=== PATIENT | male | born 1945 | race Caucasian/White ===

== ENCOUNTER 2023-04-26 10:43 | Inpatient (IN) | payer OTHER ==
[2023-04-26 12:17] LABS: HEMATOCRIT 53.7 % (35.4-49); HEMOGLOBIN 18.2 G/dL (11.7-16.9); MCH 31.4 pg (25.7-33.7); MCHC 33.8 g/dl (32.0-35.9); MEAN CELL VOLUME 92.8 fl (80-96); MEAN PLT VOLUME 7.7 fl (7.5-11.1); PLATELET COUNT 201.6 10^3/uL (134-434); RBC 5.79 10^6/uL (4.00-5.60); RDW 14.7 % (11.9-15.9); WHITE BLOOD COUNT 8.9 10^3/uL (4.0-10.8)
[2023-04-26 12:19] LABS: INR 0.9 (0.83-1.09); PROTHROMBIN TIME (PATIENT) 10.5 SEC (9.7-13.0)
[2023-04-26 12:30] LABS: ADD RBC MORPHOLOGY YES
[2023-04-26 12:34] LABS: ALBUMIN 3.7 g/dl (3.4-5.0); BILIRUBIN,TOTAL 1.4 mg/dl (0.2-1); CALCIUM 9.2 mg/dl (8.5-10.1); CREATININE 1.1 mg/dl (0.6-1.3); POTASSIUM 3.1 mmol/L (3.5-5.1)
[2023-04-26 12:54] LABS: PLATELET ESTIMATE ADEQUATE
[2023-04-26] MEDS ORDERED: POTASSIUM CHLORIDE ORAL LIQUID 20 MEQ/15 ML PO ONE (13:11)
[2023-04-26] MEDS ORDERED: SODIUM CHLORIDE 0.9% 1000 ML INFUS.BAG IV ONE (13:12)
[2023-04-26] MEDS ORDERED: POTASSIUM CHLORIDE ORAL LIQUID 20 MEQ/15 ML ONE (13:25)
[2023-04-26] MEDS ORDERED: ONDANSETRON 4 MG/2 ML VIAL IVPUSH ONE (14:18)
[2023-04-26] MEDS ORDERED: ONDANSETRON 4 MG/2 ML VIAL ONE (14:24)
[2023-04-26] MEDS ORDERED: MAGNESIUM SULF 50% (8.12 MEQ/2 ML-1 GM VIAL) IVPB ONE (19:46)
[2023-04-26] MEDS ORDERED: MAGNESIUM SULFATE IN WATER 2 GM/50 ML IVPB IVPB ONE (20:01)
[2023-04-26 21:21] VITALS: BMI 21.2
[2023-04-26] MEDS ORDERED: ACETAMINOPHEN 1000 MG/100 ML BAG IVPB PRN (21:28)
[2023-04-26] MEDS ORDERED: ONDANSETRON 4 MG/2 ML VIAL IVPUSH PRN (21:28)
[2023-04-26] MEDS ORDERED: MINERAL OIL ENEMA 133 ML ENEMA RC ONE (21:33)
[2023-04-26] MEDS: KCL 10 MEQ IVPB 10 MEQ/100 ML INFUS.BAG IVPB SCH ×2 (21:44→23:32)
[2023-04-26] MEDS: SODIUM CHLORIDE 0.9%/KCL 20 MEQ/1,000 ML INFUS.BAG IV SCH (21:54)
[2023-04-27 10:59] LABS: BASO % 0.7 % (0-2.0); EOS % 1.5 % (0-4.5); HEMATOCRIT 41.7 % (35.4-49); LYMPH % 29.3 % (8-40); MCH 30.7 pg (25.7-33.7); MCHC 33.6 g/dl (32.0-35.9); MEAN CELL VOLUME 91.3 fl (80-96); MEAN PLT VOLUME 8.1 fl (7.5-11.1); MONO % 11.1 % (3.8-10.2); NEUT % 57.4 % (42.8-82.8); PLATELET COUNT 200 10^3/uL (134-434); RBC 4.56 M/mm3 (4.00-5.60); RDW 13.9 % (11.9-15.9)
[2023-04-27 11:05] LABS: POTASSIUM 3.5 mmol/L (3.5-5.1)
[2023-04-27 11:06] LABS: BLOOD UREA NITROGEN 15.4 mg/dL (7-18); MAGNESIUM 2.4 mg/dL (1.8-2.4)
[2023-04-27 11:09] LABS: PHOSPHOROUS 2.1 mg/dL (2.5-4.9)
[2023-04-27 11:10] LABS: CALCIUM 7.6 mg/dL (8.5-10.1); CREATININE 0.9 mg/dL (0.55-1.3)
[2023-04-27] MEDS: HEPARIN NA (PORCINE) 5,000 UNITS/ML 1ML VIAL SQ SCH ×3 (15:44→23:18)
[2023-04-27] MEDS ORDERED: ACETAMINOPHEN 325 MG TABLET (FP) PO PRN (21:20)
[2023-04-27] MEDS: SODIUM CHLORIDE 0.9%/KCL 20 MEQ/1,000 ML INFUS.BAG IV SCH (22:00)
[2023-04-28] MEDS: HEPARIN NA (PORCINE) 5,000 UNITS/ML 1ML VIAL SQ SCH ×3 (06:16→22:00)
[2023-04-28] MEDS: SODIUM CHLORIDE 0.9%/KCL 20 MEQ/1,000 ML INFUS.BAG IV SCH ×2 (06:17→22:00)
[2023-04-28 10:27] LABS: POTASSIUM 3.8 mmol/L (3.5-5.1)
[2023-04-28 10:28] LABS: BASO % 0.9 % (0-2.0); HEMATOCRIT 41.5 % (35.4-49); HEMOGLOBIN 13.9 GM/dL (11.7-16.9); MCH 30.6 pg (25.7-33.7); MCHC 33.6 g/dl (32.0-35.9); MEAN CELL VOLUME 91.1 fl (80-96); MONO % 10.9 % (3.8-10.2); NEUT % 59.2 % (42.8-82.8); PLATELET COUNT 182 10^3/uL (134-434); RBC 4.55 M/mm3 (4.00-5.60); RDW 13.9 % (11.9-15.9); WHITE BLOOD COUNT 6.5 K/mm3 (4.0-10.0)
[2023-04-28 10:29] LABS: BLOOD UREA NITROGEN 11.7 mg/dL (7-18)
[2023-04-28 10:32] LABS: CREATININE 0.8 mg/dL (0.55-1.3)
[2023-04-28 10:34] LABS: BILIRUBIN,TOTAL 1.2 mg/dL (0.2-1)
[2023-04-28 10:38] LABS: ALBUMIN 2.6 g/dl (3.4-5.0)
[2023-04-28] MEDS: PANTOPRAZOLE SODIUM 40 MG VIAL IVPUSH SCH (16:22)
[2023-04-29] MEDS: HEPARIN NA (PORCINE) 5,000 UNITS/ML 1ML VIAL SQ SCH ×2 (06:33→15:04)
[2023-04-29 09:38] VITALS: RESP 18
[2023-04-29] MEDS: PANTOPRAZOLE SODIUM 40 MG VIAL IVPUSH SCH (09:42)
[2023-04-29 10:35] LABS: POTASSIUM 4.1 mmol/L (3.5-5.1)
[2023-04-29 10:36] LABS: CALCIUM 8.3 mg/dL (8.5-10.1)
[2023-04-29 10:37] LABS: BASO % 0.4 % (0-2.0); BLOOD UREA NITROGEN 10.3 mg/dL (7-18); EOS % 1.7 % (0-4.5); HEMATOCRIT 45.1 % (35.4-49); LYMPH % 24.6 % (8-40); MCHC 33.1 g/dl (32.0-35.9); MEAN CELL VOLUME 90.7 fl (80-96); MEAN PLT VOLUME 7.6 fl (7.5-11.1); MONO % 11.8 % (3.8-10.2); NEUT % 61.5 % (42.8-82.8); PLATELET COUNT 190 10^3/uL (134-434); RBC 4.98 M/mm3 (4.00-5.60); RDW 13.7 % (11.9-15.9); WHITE BLOOD COUNT 7.2 K/mm3 (4.0-10.0)
[2023-04-29 10:40] LABS: CREATININE 0.9 mg/dL (0.55-1.3)
[2023-04-29] MEDS ORDERED: METOCLOPRAMIDE HCL 10 MG TABLET (FP) PO SCH (11:00)
[2023-04-29 14:45] VITALS: BP 121/73; PULSE 69; TEMP 97.6
== END 2023-04-29 17:44 | disposition home or self-care (01) | DRG 243 ==
LOC: FER 10:43 → FM/S 14:21
PROVIDERS: ADMIT Internal Medicine
DX: K21.9 Gastro-esophageal reflux disease without esophagitis (principal); K59.00 Constipation, unspecified; R63.4 Abnormal weight loss; Z68.21 Body mass index [BMI] 21.0-21.9, adult; I44.7 Left bundle-branch block, unspecified; E86.0 Dehydration; K44.9 Diaphragmatic hernia without obstruction or gangrene; K52.9 Noninfective gastroenteritis and colitis, unspecified
CPT/HCPCS: 0241U-QW; 36415; 71046-TC-FY; 74177-TC; 80048; 80053; 81003; 81015; 83690; 83735; 84100; 84484; 85025; 85610; 85730; 86850; 86900; 86901; 87086; 93005; 99285-25; J1644; Q9967

== ENCOUNTER 2023-05-12 16:57 | Inpatient (IN) | payer OTHER ==
[2023-05-12] MEDS ORDERED: NOREPINEPHRINE BITARTRATE/D5W 8 MG/250 ML BAG IVPB ONE (17:32)
[2023-05-12] MEDS ORDERED: methylPREDNISolone NA SUCC 125 MG/2 ML VIAL IVPB ONE ×2 (17:37→22:00)
[2023-05-12] MEDS ORDERED: ALBUTEROL SO4 2.5/IPRATROPIUM 0.5 INH SOL 3 ML VIAL.NEB. NEB ONE (17:41)
[2023-05-12] MEDS ORDERED: ALBUTEROL SO4 2.5/IPRATROPIUM 0.5 INH SOL 3 ML VIAL.NEB. NEB SCH (17:45)
[2023-05-12] MEDS ORDERED: ROCURONIUM BROMIDE 50 MG/5 ML VIAL IV ONE (17:48)
[2023-05-12] MEDS ORDERED: ETOMIDATE 40 MG/20 ML VIAL IVPUSH ONE (17:48)
[2023-05-12] MEDS ORDERED: PHENYLEPHRINE HCL 10 MG/1 ML SINGLE DOSE VIAL IVPB ONE ×2 (17:49→19:12)
[2023-05-12] MEDS ORDERED: SODIUM CHLORIDE 0.9% 500 ML INFUS.BAG IV ONE ×3 (17:50→18:59)
[2023-05-12 18:04] LABS: ARTERIAL BLD GAS O2 SATURATION 95.3 % (95-98); ARTERIAL BLOOD GAS BASE EXCESS -18.1 mmol/L (-2-2); ARTERIAL BLOOD GAS PO2 112.1 mmHg (80-100)
[2023-05-12 18:04] LABS: VENOUS BASE EXCESS -16.5 mmol/L (-2-2); VENOUS O2 SATURATION 47.2 % (70-80); VENOUS PCO2 68.2 mmHg (38-52)
[2023-05-12 18:05] LABS: VENT MODE A/C; VENT RATE 14
[2023-05-12 18:06] LABS: ARTERIAL BLOOD GAS pH 7.007 (7.350-7.450)
[2023-05-12 18:08] LABS: VENOUS PH 6.999 (7.310-7.410)
[2023-05-12 18:10] LABS: BASO % 0.3 % (0-2.0); EOS % 0.3 % (0-4.5); HEMATOCRIT 53.1 % (35.4-49); LYMPH % 25.9 % (8-40); MCH 30.2 pg (25.7-33.7); MEAN CELL VOLUME 94.3 fl (80-96); MEAN PLT VOLUME 8.1 fl (7.5-11.1); MONO % 1.6 % (3.8-10.2); NEUT % 71.9 % (42.8-82.8); PLATELET COUNT 229 10^3/uL (134-434); RBC 5.64 M/mm3 (4.00-5.60); RDW 15.9 % (11.9-15.9); WHITE BLOOD COUNT 10.4 K/mm3 (4.0-10.0)
[2023-05-12 18:17] LABS: INR 0.98 (0.83-1.09); PROTHROMBIN TIME (PATIENT) 11.4 SEC (9.7-13.0)
[2023-05-12 18:20] LABS: ACTIVATED PTT 23.8 SECONDS (25.2-36.5)
[2023-05-12 18:39] LABS: POTASSIUM 4.4 mmol/L (3.5-5.1)
[2023-05-12 18:42] LABS: ALBUMIN 3.4 g/dl (3.4-5.0); MAGNESIUM 2.9 mg/dL (1.8-2.4)
[2023-05-12 18:47] LABS: BILIRUBIN,TOTAL 1.8 mg/dL (0.2-1); TOT PROT 7.3 g/dl (6.4-8.2)
[2023-05-12 18:52] LABS: BLOOD UREA NITROGEN 57.7 mg/dL (7-18); CALCIUM 9.6 mg/dL (8.5-10.1)
[2023-05-12] MEDS ORDERED: VASOPRESSIN 20 UNITS/ML VIAL IV ONE (18:59)
[2023-05-12] MEDS ORDERED: VASOPRESSIN 40 UNITS/100 ML BAG IV SCH ×2 (19:00→21:45)
[2023-05-12] MEDS ORDERED: PHENYLEPHRINE HCL 10 MG/1 ML SINGLE DOSE VIAL ONE (19:12)
[2023-05-12] MEDS ORDERED: VANCOMYCIN 1,000 MG in DEXTROSE 5%-WATER - 250 ML IVPB ONE (19:13)
[2023-05-12] MEDS ORDERED: PIPERACILLIN/TAZOB 4.5 GM 4.5 GM in DEXTROSE 5%-WATER 100 ML IVPB ONE (19:13)
[2023-05-12] MEDS ORDERED: PHENYLEPHRINE NS PREMIX 50,000 MCG/500 ML BAG CVP SCH (19:15)
[2023-05-12] MEDS: NOREPINEPHRINE BITARTRATE/D5W 8 MG/250 ML BAG IVPB SCH (19:44)
[2023-05-12] MEDS ORDERED: PROPOFOL 1,000,000 MCG/100 ML VIAL IVPB SCH (21:30)
[2023-05-12] MEDS ORDERED: SODIUM BICARBONATE 8.4% 50 MEQ/50 ML DISP.SYRIN IVPUSH ONE ×2 (21:34→22:23)
[2023-05-12] MEDS ORDERED: VANCOMYCIN/WATER FOR INJ (PEG) 1,000 MG/200 ML BAG IVPB ONE (22:00)
[2023-05-12] MEDS ORDERED: AZITHROMYCIN IVPB 500 MG/250 ML BAG IVPB SCH (22:10)
[2023-05-12 22:14] LABS: ARTERIAL BLD GAS O2 SATURATION 99.2 % (95-98)
[2023-05-12 22:15] LABS: ALLENS TEST POSITIVE
[2023-05-12 22:16] LABS: VENT MODE A/C; VENT RATE 14
[2023-05-12 22:18] LABS: ARTERIAL BLOOD GAS pH 7.072 (7.350-7.450)
[2023-05-12] MEDS: FENTANYL NS IVPB 500 MCG/100 ML BAG IVPB SCH (22:23)
[2023-05-12] MEDS: HEPARIN NA (PORCINE) 5,000 UNITS/ML 1ML VIAL SQ SCH (22:37)
[2023-05-12 22:50] LABS: BASO % 0.2 % (0-2.0); EOS % 0.1 % (0-4.5); HEMATOCRIT 45.6 % (35.4-49); HEMOGLOBIN 14.8 GM/dL (11.7-16.9); LYMPH % 11.1 % (8-40); MCH 29.6 pg (25.7-33.7); MCHC 32.4 g/dl (32.0-35.9); MEAN CELL VOLUME 91.2 fl (80-96); MONO % 3.7 % (3.8-10.2); NEUT % 84.9 % (42.8-82.8); PLATELET COUNT 184 10^3/uL (134-434); RDW 14.6 % (11.9-15.9); WHITE BLOOD COUNT 9.6 K/mm3 (4.0-10.0)
[2023-05-12 22:54] LABS: EPI CELLS >36 /uL (0-25.1); HYALINE CASTS 17 /uL (0-3.1); PH,URINE 5.5 (5.0-8.0); URINE APPEARANCE CLOUDY; URINE BILIRUBIN 3+ (NEGATIVE); URINE COLOR DK YELLOW; URINE GLUCOSE (UA) NEGATIVE (NEGATIVE); URINE KETONE 1+ (NEGATIVE); URINE LEUK ESTERASE 1+ (NEGATIVE); URINE NITRITE POSITIVE (NEGATIVE); URINE PROTEIN 2+ (NEGATIVE); URINE WBC 77 /uL (0-25.8)
[2023-05-12 23:09] LABS: CHLORIDE 121 mmol/L (98-107); SODIUM 154 mmol/L (136-145)
[2023-05-12 23:12] LABS: BLOOD UREA NITROGEN 53.4 mg/dL (7-18); CO2 20 mmol/L (21-32); GLUCOSE,RANDOM 198 mg/dL (74-106); MAGNESIUM 2.2 mg/dL (1.8-2.4)
[2023-05-12 23:15] LABS: CREATININE 2.6 mg/dL (0.55-1.3); PHOSPHOROUS 6.2 mg/dL (2.5-4.9); SGOT/AST 52 U/L (15-37); SGPT/ALT 30 U/L (13-61)
[2023-05-12 23:18] LABS: ALK PHOS 81 U/L (45-117)
[2023-05-12] MEDS: DEXTROSE 5%-WATER - 1,000 ML with SODIUM BICARBONATE 8.4% - 150 MEQ IV SCH (23:19)
[2023-05-12] MEDS: CHLORHEXIDINE GLUCONATE 4% CLEANSER FOR DECOLONIZATION TP SCH (23:20)
[2023-05-12 23:21] LABS: ALBUMIN 2.1 g/dl (3.4-5.0); ANION GAP 13 mmol/L (4-13); CALCIUM 6.8 mg/dL (8.5-10.1); LACTIC ACID 6.6 mmol/L (0.4-2.0); POTASSIUM 2.9 mmol/L (3.5-5.1); TOT PROT 4.5 g/dl (6.4-8.2)
[2023-05-12 23:33] LABS: URINE BACTERIA 13.5 /uL (0-1359); URINE RBC 45.9 /uL (0-23.9)
[2023-05-13] MEDS: MUPIROCIN 2% TOPICAL OINTMENT FOR DECOLONIZATION NS SCH ×3 (02:00→22:50)
[2023-05-13] MEDS: FENTANYL NS IVPB 500 MCG/100 ML BAG IVPB SCH ×3 (05:01→22:52)
[2023-05-13] MEDS: HEPARIN NA (PORCINE) 5,000 UNITS/ML 1ML VIAL SQ SCH ×3 (05:38→21:37)
[2023-05-13 06:26] LABS: ARTERIAL BLOOD GAS BASE EXCESS -12.5 mmol/L (-2-2); ARTERIAL BLOOD GAS PO2 200.7 mmHg (80-100); ARTERIAL BLOOD GAS pH 7.141 (7.350-7.450)
[2023-05-13 06:36] LABS: VENT MODE A/C
[2023-05-13 06:37] LABS: VENT RATE 24
[2023-05-13 07:14] LABS: CHLORIDE 113 mmol/L (98-107); POTASSIUM 3.8 mmol/L (3.5-5.1); SODIUM 145 mmol/L (136-145)
[2023-05-13 07:19] LABS: ALBUMIN 2.1 g/dl (3.4-5.0); ANION GAP 16 mmol/L (4-13); BASO % 0.1 % (0-2.0); BLOOD UREA NITROGEN 56.6 mg/dL (7-18); CO2 17 mmol/L (21-32); HEMATOCRIT 45.7 % (35.4-49); HEMOGLOBIN 14.5 GM/dL (11.7-16.9); LYMPH % 8.4 % (8-40); MCH 29.6 pg (25.7-33.7); MCHC 31.7 g/dl (32.0-35.9); MEAN CELL VOLUME 93.3 fl (80-96); MEAN PLT VOLUME 8.4 fl (7.5-11.1); MONO % 3.1 % (3.8-10.2); NEUT % 88.4 % (42.8-82.8); PLATELET COUNT 145 10^3/uL (134-434); RBC 4.89 M/mm3 (4.00-5.60); RDW 15.2 % (11.9-15.9); WHITE BLOOD COUNT 9.3 K/mm3 (4.0-10.0)
[2023-05-13 07:20] LABS: PHOSPHOROUS 4.1 mg/dL (2.5-4.9)
[2023-05-13 07:22] LABS: SGOT/AST 45 U/L (15-37); SGPT/ALT 30 U/L (13-61); TOT PROT 4.6 g/dl (6.4-8.2)
[2023-05-13 07:23] LABS: ALK PHOS 75 U/L (45-117)
[2023-05-13 07:32] LABS: INR 1.01 (0.83-1.09); PROTHROMBIN TIME (PATIENT) 11.7 SEC (9.7-13.0)
[2023-05-13 07:34] LABS: ACTIVATED PTT 26.1 SECONDS (25.2-36.5)
[2023-05-13 07:46] LABS: CALCIUM 6.8 mg/dL (8.5-10.1); GLUCOSE,RANDOM 416 mg/dL (74-106)
[2023-05-13] MEDS ORDERED: FLUDROCORTISONE ACETATE 0.1 MG TABLET (FP) PO SCH ×2 (10:00→10:56)
[2023-05-13] MEDS ORDERED: PIPERACILLIN/TAZOB 3.375 GM 3.375 GM in DEXTROSE 5%-WATER - 50 ML IVPB SCH (10:00)
[2023-05-13] MEDS ORDERED: HYDROCORTISONE SOD SUCCINATE 100 MG/2 ML VIAL IVPB SCH (10:00)
[2023-05-13] MEDS: VASOPRESSIN 40 UNITS/100 ML BAG IV SCH (10:39)
[2023-05-13] MEDS: PIPERACILLIN/TAZOB 2.25 GM 2.25 GM in DEXTROSE 5%-WATER - 50 ML IVPB SCH ×3 (11:12→21:36)
[2023-05-13] MEDS ORDERED: INSULIN (NOVOLOG) ASPART 100 UNITS/ML 10ML VIAL ONE ×2 (11:40→17:43)
[2023-05-13] MEDS: INSULIN SLIDING SCALE (NOVOLOG) 1 VIAL SQ SCH ×3 (11:46→23:15)
[2023-05-13] MEDS: HYDROCORTISONE SOD SUCCINATE 100 MG/2 ML VIAL IVPB SCH ×2 (16:34→21:36)
[2023-05-13] MEDS ORDERED: ALBUTEROL SO4 2.5/IPRATROPIUM 0.5 INH SOL 3 ML VIAL.NEB. NEB ONE (20:28)
[2023-05-13] MEDS ORDERED: PNEUMOC 20-VAL CONJ-DIP CRM/PF 0.5 ML SYRINGE IM ONE (21:00)
[2023-05-13] MEDS: CHLORHEXIDINE GLUCONATE 4% CLEANSER FOR DECOLONIZATION TP SCH (21:37)
[2023-05-13] MEDS: DEXTROSE 5%-WATER - 1,000 ML with SODIUM BICARBONATE 8.4% - 150 MEQ IV SCH (22:52)
[2023-05-14] MEDS: NOREPINEPHRINE BITARTRATE/D5W 8 MG/250 ML BAG IVPB SCH ×2 (01:00→21:52)
[2023-05-14] MEDS: PIPERACILLIN/TAZOB 2.25 GM 2.25 GM in DEXTROSE 5%-WATER - 50 ML IVPB SCH ×4 (02:00→21:53)
[2023-05-14] MEDS: HYDROCORTISONE SOD SUCCINATE 100 MG/2 ML VIAL IVPB SCH ×4 (02:00→21:54)
[2023-05-14] MEDS: VASOPRESSIN 40 UNITS/100 ML BAG IV SCH ×2 (05:00→08:33)
[2023-05-14] MEDS: DEXTROSE 5%-WATER - 1,000 ML with SODIUM BICARBONATE 8.4% - 150 MEQ IV SCH ×2 (05:00→12:11)
[2023-05-14] MEDS: HEPARIN NA (PORCINE) 5,000 UNITS/ML 1ML VIAL SQ SCH (05:42)
[2023-05-14] MEDS: INSULIN SLIDING SCALE (NOVOLOG) 1 VIAL SQ SCH ×3 (05:42→18:05)
[2023-05-14 07:09] LABS: HEMATOCRIT 40.5 % (35.4-49); HEMOGLOBIN 13.2 GM/dL (11.7-16.9); MCH 29.5 pg (25.7-33.7); MCHC 32.6 g/dl (32.0-35.9); MEAN CELL VOLUME 90.5 fl (80-96); MEAN PLT VOLUME 8.8 fl (7.5-11.1); PLATELET COUNT 65 10^3/uL (134-434); RBC 4.47 M/mm3 (4.00-5.60); RDW 14.7 % (11.9-15.9); WHITE BLOOD COUNT 16.5 K/mm3 (4.0-10.0)
[2023-05-14 07:16] LABS: CHLORIDE 102 mmol/L (98-107); SODIUM 141 mmol/L (136-145)
[2023-05-14 07:19] LABS: ALBUMIN 1.7 g/dl (3.4-5.0); ANION GAP 14 mmol/L (4-13); CO2 26 mmol/L (21-32); GLUCOSE,RANDOM 170 mg/dL (74-106); MAGNESIUM 1.5 mg/dL (1.8-2.4)
[2023-05-14 07:22] LABS: CREATININE 2.9 mg/dL (0.55-1.3); PHOSPHOROUS 1.8 mg/dL (2.5-4.9); SGOT/AST 31 U/L (15-37); SGPT/ALT 24 U/L (13-61)
[2023-05-14 07:24] LABS: BILIRUBIN,TOTAL 0.8 mg/dL (0.2-1); TOT PROT 4.2 g/dl (6.4-8.2)
[2023-05-14 07:25] LABS: ALK PHOS 62 U/L (45-117)
[2023-05-14 07:30] LABS: CALCIUM 6.5 mg/dL (8.5-10.1)
[2023-05-14] MEDS ORDERED: MAGNESIUM 2GM/50ML STERILE WATER IVPB IVPB ONE (07:38)
[2023-05-14] MEDS ORDERED: KCL 10 MEQ IVPB 10 MEQ/100 ML INFUS.BAG IVPB SCH (07:45)
[2023-05-14] MEDS ORDERED: KCL 20 MEQ PREMIX BAG 100 ML IVPB ONE (08:30)
[2023-05-14] MEDS ORDERED: POTASSIUM PHOSPHATE 30 MM in DEXTROSE 5%-WATER - 250 ML IVPB ONE (09:00)
[2023-05-14] MEDS: FLUDROCORTISONE ACETATE 0.1 MG TABLET (FP) PO SCH (10:23)
[2023-05-14] MEDS: MUPIROCIN 2% TOPICAL OINTMENT FOR DECOLONIZATION NS SCH ×2 (10:23→21:55)
[2023-05-14 13:06] LABS: ARTERIAL BLD GAS O2 SATURATION 98.8 % (95-98); ARTERIAL BLOOD GAS BASE EXCESS 1.6 mmol/L (-2-2); ARTERIAL BLOOD GAS PO2 129.5 mmHg (80-100); ARTERIAL BLOOD GAS pH 7.477 (7.350-7.450)
[2023-05-14 13:12] LABS: VENT MODE AC; VENT RATE 28
[2023-05-14 15:48] LABS: ARTERIAL BLD GAS O2 SATURATION 97.4 % (95-98); ARTERIAL BLOOD GAS BASE EXCESS 3.5 mmol/L (-2-2); ARTERIAL BLOOD GAS PO2 89.2 mmHg (80-100); ARTERIAL BLOOD GAS pH 7.483 (7.350-7.450)
[2023-05-14 15:56] LABS: VENT MODE A/C
[2023-05-14 15:57] LABS: VENT RATE 24
[2023-05-14 16:31] LABS: CHLORIDE 97 mmol/L (98-107); POTASSIUM 3.4 mmol/L (3.5-5.1); SODIUM 142 mmol/L (136-145)
[2023-05-14 16:35] LABS: ANION GAP 16 mmol/L (4-13); BLOOD UREA NITROGEN 49.5 mg/dL (7-18); CO2 29 mmol/L (21-32); CREATININE 2.7 mg/dL (0.55-1.3); GLUCOSE,RANDOM 196 mg/dL (74-106)
[2023-05-14 16:45] LABS: CALCIUM 6.1 mg/dL (8.5-10.1)
[2023-05-14] MEDS ORDERED: POTASSIUM CHLORIDE ORAL LIQUID 20 MEQ/15 ML PO ONE (18:30)
[2023-05-14] MEDS ORDERED: SODIUM BICARBONATE 8.4% - 150 MEQ in DEXTROSE 5%-WATER - 1,000 ML IV SCH (20:31)
[2023-05-14 21:49] LABS: CHLORIDE 96 mmol/L (98-107); SODIUM 141 mmol/L (136-145)
[2023-05-14 21:51] LABS: BLOOD UREA NITROGEN 46.9 mg/dL (7-18); CO2 33 mmol/L (21-32); GLUCOSE,RANDOM 173 mg/dL (74-106); MAGNESIUM 1.9 mg/dL (1.8-2.4)
[2023-05-14] MEDS: FENTANYL NS IVPB 500 MCG/100 ML BAG IVPB SCH (21:54)
[2023-05-14 21:55] LABS: CREATININE 2.6 mg/dL (0.55-1.3); PHOSPHOROUS 2.8 mg/dL (2.5-4.9)
[2023-05-14] MEDS: CHLORHEXIDINE GLUCONATE 4% CLEANSER FOR DECOLONIZATION TP SCH (21:56)
[2023-05-14 22:07] LABS: ANION GAP 13 mmol/L (4-13); CALCIUM 5.8 mg/dL (8.5-10.1); POTASSIUM 2.8 mmol/L (3.5-5.1)
[2023-05-14 22:43] LABS: ARTERIAL BLD GAS O2 SATURATION 94.2 % (95-98); ARTERIAL BLOOD GAS BASE EXCESS 2.4 mmol/L (-2-2); ARTERIAL BLOOD GAS PO2 73.5 mmHg (80-100); ARTERIAL BLOOD GAS pH 7.366 (7.350-7.450)
[2023-05-14 22:48] LABS: VENT MODE A/C; VENT RATE 20
[2023-05-14] MEDS: KCL 20 MEQ PREMIX BAG 100 ML IVPB SCH ×2 (22:52→23:56)
[2023-05-14] MEDS ORDERED: ALBUTEROL SO4 2.5/IPRATROPIUM 0.5 INH SOL 3 ML VIAL.NEB. NEB PRN (22:56)
[2023-05-15 00:25] LABS: ARTERIAL BLD GAS O2 SATURATION 93.2 % (95-98); ARTERIAL BLOOD GAS BASE EXCESS 4.3 mmol/L (-2-2); ARTERIAL BLOOD GAS pH 7.418 (7.350-7.450)
[2023-05-15 00:28] LABS: VENT MODE A/C; VENT RATE 22
[2023-05-15] MEDS: INSULIN SLIDING SCALE (NOVOLOG) 1 VIAL SQ SCH ×5 (00:46→23:34)
[2023-05-15] MEDS ORDERED: FUROSEMIDE 40 MG/4 ML INJECTABLE VIAL IVPUSH ONE (00:46)
[2023-05-15] MEDS: KCL 20 MEQ PREMIX BAG 100 ML IVPB SCH (01:05)
[2023-05-15] MEDS: PIPERACILLIN/TAZOB 2.25 GM 2.25 GM in DEXTROSE 5%-WATER - 50 ML IVPB SCH ×4 (02:27→21:09)
[2023-05-15] MEDS: HYDROCORTISONE SOD SUCCINATE 100 MG/2 ML VIAL IVPB SCH ×4 (02:27→21:09)
[2023-05-15 06:20] LABS: HEMATOCRIT 38.9 % (35.4-49); HEMOGLOBIN 12.9 GM/dL (11.7-16.9); MCH 29.7 pg (25.7-33.7); MCHC 33.2 g/dl (32.0-35.9); MEAN CELL VOLUME 89.5 fl (80-96); MEAN PLT VOLUME 8.6 fl (7.5-11.1); PLATELET COUNT 37 10^3/uL (134-434); RBC 4.34 M/mm3 (4.00-5.60); RDW 14.5 % (11.9-15.9); WHITE BLOOD COUNT 9.9 K/mm3 (4.0-10.0)
[2023-05-15 06:26] LABS: EPI CELLS 4 /uL (0-25.1); HYALINE CASTS 1 /uL (0-3.1); PH,URINE 5.5 (5.0-8.0); URINE APPEARANCE CLEAR; URINE BACTERIA 19 /uL (0-1359); URINE BILIRUBIN 1+ (NEGATIVE); URINE COLOR DK YELLOW; URINE GLUCOSE (UA) NEGATIVE (NEGATIVE); URINE KETONE NEGATIVE (NEGATIVE); URINE LEUK ESTERASE NEGATIVE (NEGATIVE); URINE NITRITE NEGATIVE (NEGATIVE); URINE PROTEIN 1+ (NEGATIVE); URINE RBC 64 /uL (0-23.9); URINE WBC 20 /uL (0-25.8)
[2023-05-15 06:42] LABS: CHLORIDE 90 mmol/L (98-107); POTASSIUM 3.4 mmol/L (3.5-5.1); SODIUM 138 mmol/L (136-145)
[2023-05-15 06:46] LABS: ALBUMIN 1.6 g/dl (3.4-5.0); ANION GAP 13 mmol/L (4-13); BLOOD UREA NITROGEN 44.5 mg/dL (7-18); CO2 34 mmol/L (21-32); GLUCOSE,RANDOM 171 mg/dL (74-106); MAGNESIUM 1.8 mg/dL (1.8-2.4)
[2023-05-15 06:49] LABS: CREATININE 2.5 mg/dL (0.55-1.3); PHOSPHOROUS 2.5 mg/dL (2.5-4.9); SGOT/AST 40 U/L (15-37); SGPT/ALT 24 U/L (13-61)
[2023-05-15 06:50] LABS: TOT PROT 4.2 g/dl (6.4-8.2)
[2023-05-15 06:52] LABS: ALK PHOS 69 U/L (45-117)
[2023-05-15 07:15] LABS: CALCIUM 5.8 mg/dL (8.5-10.1)
[2023-05-15] MEDS ORDERED: CALCIUM GLUCONATE 10% - 1,000 MG/10 ML VIAL IVPB ONE (08:30)
[2023-05-15] MEDS ORDERED: KCL 20 MEQ PREMIX BAG 100 ML IVPB ONE (09:00)
[2023-05-15] MEDS ORDERED: POTASSIUM PHOSPHATE 30 MM in SODIUM CHLORIDE 250 ML IVPB ONE (09:00)
[2023-05-15] MEDS: FLUDROCORTISONE ACETATE 0.1 MG TABLET (FP) PO SCH (09:30)
[2023-05-15] MEDS: MUPIROCIN 2% TOPICAL OINTMENT FOR DECOLONIZATION NS SCH ×2 (09:30→21:09)
[2023-05-15 10:06] LABS: ARTERIAL BLD GAS O2 SATURATION 96.7 % (95-98); ARTERIAL BLOOD GAS BASE EXCESS 9.6 mmol/L (-2-2); ARTERIAL BLOOD GAS PO2 78.7 mmHg (80-100); ARTERIAL BLOOD GAS pH 7.523 (7.350-7.450)
[2023-05-15 10:09] LABS: VENT MODE A/C; VENT RATE 22
[2023-05-15 13:50] LABS: ACTIVATED PTT 29.8 SECONDS (25.2-36.5); INR 0.97 (0.83-1.09); PROTHROMBIN TIME (PATIENT) 11.2 SEC (9.7-13.0)
[2023-05-15] MEDS: FENTANYL NS IVPB 500 MCG/100 ML BAG IVPB SCH ×2 (14:22→23:35)
[2023-05-15] MEDS: NOREPINEPHRINE BITARTRATE/D5W 8 MG/250 ML BAG IVPB SCH (17:29)
[2023-05-15] MEDS: VASOPRESSIN 40 UNITS/100 ML BAG IV SCH (21:10)
[2023-05-15] MEDS: CHLORHEXIDINE GLUCONATE 4% CLEANSER FOR DECOLONIZATION TP SCH (21:10)
[2023-05-15 22:23] LABS: ARTERIAL BLD GAS O2 SATURATION 96.8 % (95-98); ARTERIAL BLOOD GAS BASE EXCESS 8.5 mmol/L (-2-2); ARTERIAL BLOOD GAS PO2 87.2 mmHg (80-100); ARTERIAL BLOOD GAS pH 7.444 (7.350-7.450)
[2023-05-15 22:25] LABS: VENT MODE VAC; VENT RATE 14
[2023-05-15] MEDS ORDERED: KCL 10 MEQ IVPB 10 MEQ/100 ML INFUS.BAG IVPB SCH (22:30)
[2023-05-16] MEDS: PIPERACILLIN/TAZOB 2.25 GM 2.25 GM in DEXTROSE 5%-WATER - 50 ML IVPB SCH ×3 (02:20→14:04)
[2023-05-16] MEDS: HYDROCORTISONE SOD SUCCINATE 100 MG/2 ML VIAL IVPB SCH ×4 (02:20→21:31)
[2023-05-16] MEDS: INSULIN SLIDING SCALE (NOVOLOG) 1 VIAL SQ SCH ×4 (06:01→23:19)
[2023-05-16 06:52] LABS: ARTERIAL BLD GAS O2 SATURATION 91.9 % (95-98); ARTERIAL BLOOD GAS BASE EXCESS 6.9 mmol/L (-2-2); ARTERIAL BLOOD GAS PO2 58.5 mmHg (80-100); ARTERIAL BLOOD GAS pH 7.477 (7.350-7.450)
[2023-05-16 06:52] LABS: HEMATOCRIT 34.5 % (35.4-49); HEMOGLOBIN 11.4 GM/dL (11.7-16.9); MCH 29.8 pg (25.7-33.7); MEAN CELL VOLUME 90.3 fl (80-96); MEAN PLT VOLUME 9.5 fl (7.5-11.1); RBC 3.82 M/mm3 (4.00-5.60); RDW 14.6 % (11.9-15.9); WHITE BLOOD COUNT 8.9 K/mm3 (4.0-10.0)
[2023-05-16 06:56] LABS: VENT MODE A/C; VENT RATE 16
[2023-05-16 06:59] LABS: PLATELET COUNT 25 10^3/uL (134-434)
[2023-05-16 07:14] LABS: CHLORIDE 91 mmol/L (98-107); POTASSIUM 3.5 mmol/L (3.5-5.1); SODIUM 138 mmol/L (136-145)
[2023-05-16 07:17] LABS: ALBUMIN 1.4 g/dl (3.4-5.0); ANION GAP 12 mmol/L (4-13); BLOOD UREA NITROGEN 51.7 mg/dL (7-18); CO2 35 mmol/L (21-32); GLUCOSE,RANDOM 117 mg/dL (74-106); MAGNESIUM 1.8 mg/dL (1.8-2.4)
[2023-05-16 07:19] LABS: CREATININE 2.4 mg/dL (0.55-1.3)
[2023-05-16 07:20] LABS: PHOSPHOROUS 3.9 mg/dL (2.5-4.9); SGOT/AST 57 U/L (15-37); SGPT/ALT 25 U/L (13-61)
[2023-05-16 07:21] LABS: BILIRUBIN,TOTAL 0.8 mg/dL (0.2-1); TOT PROT 3.9 g/dl (6.4-8.2)
[2023-05-16 07:22] LABS: ALK PHOS 73 U/L (45-117)
[2023-05-16 07:23] LABS: CALCIUM 5.6 mg/dL (8.5-10.1)
[2023-05-16] MEDS ORDERED: CALCIUM GLUCONATE 10% - 1,000 MG/10 ML VIAL IVPB ONE (08:27)
[2023-05-16] MEDS: FLUDROCORTISONE ACETATE 0.1 MG TABLET (FP) PO SCH (09:00)
[2023-05-16] MEDS: MUPIROCIN 2% TOPICAL OINTMENT FOR DECOLONIZATION NS SCH ×2 (09:00→21:32)
[2023-05-16] MEDS: PANTOPRAZOLE SODIUM 40 MG VIAL IVPUSH SCH (09:00)
[2023-05-16] MEDS: ALBUMIN HUMAN 25% 12.5 GM/50 ML VIAL IV SCH ×4 (10:36→12:06)
[2023-05-16] MEDS: CEFEPIME 1 GM in DEXTROSE 5%-WATER 100 ML IVPB SCH ×2 (14:51→21:31)
[2023-05-16] MEDS ORDERED: CALCIUM GLUCONATE IN NACL 1 GM/50 ML BAG IVPB ONE (17:51)
[2023-05-16] MEDS: CHLORHEXIDINE GLUCONATE 4% CLEANSER FOR DECOLONIZATION TP SCH (21:31)
[2023-05-16] MEDS: FENTANYL NS IVPB 500 MCG/100 ML BAG IVPB SCH (21:31)
[2023-05-16] MEDS: NOREPINEPHRINE BITARTRATE/D5W 8 MG/250 ML BAG IVPB SCH (21:31)
[2023-05-17] MEDS: HYDROCORTISONE SOD SUCCINATE 100 MG/2 ML VIAL IVPB SCH ×4 (02:21→21:26)
[2023-05-17] MEDS: INSULIN SLIDING SCALE (NOVOLOG) 1 VIAL SQ SCH ×3 (05:40→17:04)
[2023-05-17 08:02] LABS: HEMATOCRIT 35.2 % (35.4-49); HEMOGLOBIN 11.5 GM/dL (11.7-16.9); MCH 29.7 pg (25.7-33.7); MCHC 32.7 g/dl (32.0-35.9); MEAN CELL VOLUME 90.7 fl (80-96); MEAN PLT VOLUME 8.6 fl (7.5-11.1); RBC 3.88 M/mm3 (4.00-5.60); RDW 14.8 % (11.9-15.9)
[2023-05-17 08:24] LABS: WHITE BLOOD COUNT 1.6 K/mm3 (4.0-10.0)
[2023-05-17 08:25] LABS: PLATELET COUNT 10 10^3/uL (134-434)
[2023-05-17 08:31] LABS: CHLORIDE 94 mmol/L (98-107); SODIUM 140 mmol/L (136-145)
[2023-05-17 08:36] LABS: BLOOD UREA NITROGEN 47.3 mg/dL (7-18); CO2 35 mmol/L (21-32); GLUCOSE,RANDOM 104 mg/dL (74-106); MAGNESIUM 1.9 mg/dL (1.8-2.4)
[2023-05-17 08:39] LABS: CREATININE 2.1 mg/dL (0.55-1.3); PHOSPHOROUS 3.7 mg/dL (2.5-4.9); SGOT/AST 74 U/L (15-37); SGPT/ALT 26 U/L (13-61)
[2023-05-17 08:40] LABS: BILIRUBIN,TOTAL 1.2 mg/dL (0.2-1); TOT PROT 4.3 g/dl (6.4-8.2)
[2023-05-17 08:42] LABS: ALK PHOS 60 U/L (45-117); ANION GAP 12 mmol/L (4-13); CALCIUM 6.1 mg/dL (8.5-10.1); POTASSIUM 2.7 mmol/L (3.5-5.1)
[2023-05-17] MEDS: PANTOPRAZOLE SODIUM 40 MG VIAL IVPUSH SCH (09:11)
[2023-05-17] MEDS: MUPIROCIN 2% TOPICAL OINTMENT FOR DECOLONIZATION NS SCH (09:11)
[2023-05-17] MEDS: CEFEPIME 1 GM in DEXTROSE 5%-WATER 100 ML IVPB SCH ×2 (09:12→21:27)
[2023-05-17] MEDS ORDERED: ALBUMIN HUMAN 25% 100 ML VIAL IV SCH (09:15)
[2023-05-17] MEDS ORDERED: POTASSIUM CHLORIDE ORAL LIQUID 20 MEQ/15 ML PO ONE (09:45)
[2023-05-17] MEDS ORDERED: CALCIUM GLUCONATE 10% - 1,000 MG/10 ML VIAL IVPB ONE (10:30)
[2023-05-17] MEDS: KCL 10 MEQ IVPB 10 MEQ/100 ML INFUS.BAG IVPB SCH ×3 (10:45→12:37)
[2023-05-17] MEDS ORDERED: VANCOMYCIN PREMIX 1.5 GM 1,500 MG/300 ML BAG IVPB ONE (11:00)
[2023-05-17] MEDS: FLUDROCORTISONE ACETATE 0.1 MG TABLET (FP) PO SCH (11:18)
[2023-05-17 11:35] LABS: ARTERIAL BLOOD GAS BASE EXCESS 1.3 mmol/L (-2-2); ARTERIAL BLOOD GAS PO2 103.3 mmHg (80-100); ARTERIAL BLOOD GAS pH 7.296 (7.350-7.450)
[2023-05-17 11:43] LABS: VENT MODE AC; VENT RATE 16
[2023-05-17] MEDS ORDERED: ALBUMIN HUMAN 25% 100 ML VIAL IV ONE (13:00)
[2023-05-17] MEDS ORDERED: ALBUMIN HUMAN 25% 12.5 GM/50 ML VIAL IV ONE (13:00)
[2023-05-17 13:41] VITALS: BMI 22.9
[2023-05-17 18:36] LABS: CHLORIDE 95 mmol/L (98-107); POTASSIUM 3.6 mmol/L (3.5-5.1); SODIUM 138 mmol/L (136-145)
[2023-05-17 18:38] LABS: ANION GAP 10 mmol/L (4-13); BLOOD UREA NITROGEN 51.6 mg/dL (7-18); CO2 34 mmol/L (21-32); GLUCOSE,RANDOM 98 mg/dL (74-106)
[2023-05-17 18:41] LABS: CREATININE 2.2 mg/dL (0.55-1.3)
[2023-05-17 18:45] LABS: CALCIUM 6.3 mg/dL (8.5-10.1)
[2023-05-17 20:22] LABS: BASO % 0.2 % (0-2.0); EOS % 0.3 % (0-4.5); HEMATOCRIT 29.9 % (35.4-49); HEMOGLOBIN 9.9 GM/dL (11.7-16.9); LYMPH % 20.9 % (8-40); MCH 29.7 pg (25.7-33.7); MCHC 32.9 g/dl (32.0-35.9); MEAN CELL VOLUME 90.1 fl (80-96); MEAN PLT VOLUME 8.4 fl (7.5-11.1); MONO % 2.1 % (3.8-10.2); NEUT % 76.5 % (42.8-82.8); PLATELET COUNT 92 10^3/uL (134-434); RBC 3.32 M/mm3 (4.00-5.60); RDW 15.1 % (11.9-15.9)
[2023-05-17] MEDS: NOREPINEPHRINE BITARTRATE/D5W 8 MG/250 ML BAG IVPB SCH (21:26)
[2023-05-17] MEDS: CHLORHEXIDINE GLUCONATE 4% CLEANSER FOR DECOLONIZATION TP SCH (21:27)
[2023-05-17 21:36] LABS: ANISOCYTOSIS 2+; MACROCYTOSIS 0; OVALOCYTE 1+
[2023-05-18] MEDS: INSULIN SLIDING SCALE (NOVOLOG) 1 VIAL SQ SCH ×4 (00:08→19:19)
[2023-05-18] MEDS: HYDROCORTISONE SOD SUCCINATE 100 MG/2 ML VIAL IVPB SCH ×4 (02:08→21:29)
[2023-05-18] MEDS: VASOPRESSIN 40 UNITS/100 ML BAG IV SCH ×2 (07:00)
[2023-05-18 08:21] LABS: HEMATOCRIT 29.6 % (35.4-49); HEMOGLOBIN 9.6 GM/dL (11.7-16.9); MCH 29.4 pg (25.7-33.7); MCHC 32.3 g/dl (32.0-35.9); MEAN CELL VOLUME 90.9 fl (80-96); MEAN PLT VOLUME 9.3 fl (7.5-11.1); PLATELET COUNT 50 10^3/uL (134-434); RBC 3.25 M/mm3 (4.00-5.60); RDW 15.1 % (11.9-15.9)
[2023-05-18 08:40] LABS: CHLORIDE 96 mmol/L (98-107); POTASSIUM 3.6 mmol/L (3.5-5.1); SODIUM 142 mmol/L (136-145)
[2023-05-18 08:43] LABS: ALBUMIN 2.1 g/dl (3.4-5.0); ANION GAP 12 mmol/L (4-13); BLOOD UREA NITROGEN 55.3 mg/dL (7-18); CO2 33 mmol/L (21-32); GLUCOSE,RANDOM 102 mg/dL (74-106); MAGNESIUM 2.1 mg/dL (1.8-2.4)
[2023-05-18 08:45] LABS: CREATININE 2.4 mg/dL (0.55-1.3)
[2023-05-18 08:46] LABS: PHOSPHOROUS 4.5 mg/dL (2.5-4.9); SGOT/AST 92 U/L (15-37); SGPT/ALT 47 U/L (13-61)
[2023-05-18 08:47] LABS: TOT PROT 4.6 g/dl (6.4-8.2)
[2023-05-18 08:48] LABS: ALK PHOS 80 U/L (45-117)
[2023-05-18 08:50] LABS: CALCIUM 6.1 mg/dL (8.5-10.1)
[2023-05-18] MEDS: CEFEPIME 1 GM in DEXTROSE 5%-WATER 100 ML IVPB SCH ×2 (09:21→21:31)
[2023-05-18] MEDS: PANTOPRAZOLE SODIUM 40 MG VIAL IVPUSH SCH (09:22)
[2023-05-18] MEDS: FLUDROCORTISONE ACETATE 0.1 MG TABLET (FP) PO SCH (09:22)
[2023-05-18] MEDS ORDERED: CALCIUM GLUCONATE 10% - 1,000 MG/10 ML VIAL IVPB ONE (10:00)
[2023-05-18 10:50] LABS: ANISOCYTOSIS 1+; MACROCYTOSIS 0; TOXIC GRANULATION 1+
[2023-05-18] MEDS ORDERED: NOREPINEPHRINE BITARTRATE 4 MG/4 ML ML IV ONE (18:27)
[2023-05-18] MEDS: NOREPINEPHRINE BITARTRATE/D5W 8 MG/250 ML BAG IVPB SCH (18:45)
[2023-05-18] MEDS: FENTANYL NS IVPB 500 MCG/100 ML BAG IVPB SCH (21:30)
[2023-05-18] MEDS: CHLORHEXIDINE GLUCONATE 4% CLEANSER FOR DECOLONIZATION TP SCH (21:31)
[2023-05-19] MEDS: INSULIN SLIDING SCALE (NOVOLOG) 1 VIAL SQ SCH ×5 (00:36→23:49)
[2023-05-19] MEDS: HYDROCORTISONE SOD SUCCINATE 100 MG/2 ML VIAL IVPB SCH ×4 (02:00→21:13)
[2023-05-19 08:16] LABS: HEMATOCRIT 29.5 % (35.4-49); HEMOGLOBIN 9.7 GM/dL (11.7-16.9); MCH 30.2 pg (25.7-33.7); MCHC 32.9 g/dl (32.0-35.9); MEAN CELL VOLUME 91.8 fl (80-96); MEAN PLT VOLUME 9.1 fl (7.5-11.1); RBC 3.22 M/mm3 (4.00-5.60); RDW 14.9 % (11.9-15.9)
[2023-05-19 08:18] LABS: CHLORIDE 102 mmol/L (98-107); POTASSIUM 3.4 mmol/L (3.5-5.1); SODIUM 143 mmol/L (136-145)
[2023-05-19 08:23] LABS: ANION GAP 13 mmol/L (4-13); CO2 28 mmol/L (21-32); GLUCOSE,RANDOM 111 mg/dL (74-106); MAGNESIUM 1.9 mg/dL (1.8-2.4)
[2023-05-19 08:24] LABS: BLOOD UREA NITROGEN 73.5 mg/dL (7-18)
[2023-05-19 08:26] LABS: CREATININE 2.8 mg/dL (0.55-1.3); PHOSPHOROUS 3.5 mg/dL (2.5-4.9); SGOT/AST 60 U/L (15-37); SGPT/ALT 42 U/L (13-61)
[2023-05-19 08:28] LABS: TOT PROT 3.8 g/dl (6.4-8.2)
[2023-05-19 08:29] LABS: ALK PHOS 76 U/L (45-117)
[2023-05-19 08:38] LABS: WHITE BLOOD COUNT 1.3 K/mm3 (4.0-10.0)
[2023-05-19 08:39] LABS: ALBUMIN 1.6 g/dl (3.4-5.0); PLATELET COUNT 16 10^3/uL (134-434)
[2023-05-19 09:45] LABS: ANISOCYTOSIS 2+; MACROCYTOSIS 1+; PLATELET ESTIMATE DECREASED
[2023-05-19] MEDS: PANTOPRAZOLE SODIUM 40 MG VIAL IVPUSH SCH (09:47)
[2023-05-19] MEDS: CEFEPIME 1 GM in DEXTROSE 5%-WATER 100 ML IVPB SCH ×2 (09:50→21:13)
[2023-05-19] MEDS: FLUDROCORTISONE ACETATE 0.1 MG TABLET (FP) PO SCH (09:52)
[2023-05-19] MEDS: NOREPINEPHRINE BITARTRATE/D5W 8 MG/250 ML BAG IVPB SCH ×2 (09:56→21:13)
[2023-05-19] MEDS: FENTANYL NS IVPB 500 MCG/100 ML BAG IVPB SCH (10:22)
[2023-05-19] MEDS ORDERED: POTASSIUM CHLORIDE ORAL LIQUID 20 MEQ/15 ML PO ONE (16:05)
[2023-05-19] MEDS: CHLORHEXIDINE GLUCONATE 4% CLEANSER FOR DECOLONIZATION TP SCH (21:14)
[2023-05-19] MEDS: VASOPRESSIN 40 UNITS/100 ML BAG IV SCH (21:54)
[2023-05-20] MEDS: HYDROCORTISONE SOD SUCCINATE 100 MG/2 ML VIAL IVPB SCH ×4 (02:37→21:33)
[2023-05-20] MEDS: INSULIN SLIDING SCALE (NOVOLOG) 1 VIAL SQ SCH ×4 (05:18→23:17)
[2023-05-20 08:14] LABS: HEMATOCRIT 29.1 % (35.4-49); HEMOGLOBIN 9.5 GM/dL (11.7-16.9); MCH 30.1 pg (25.7-33.7); MCHC 32.8 g/dl (32.0-35.9); MEAN CELL VOLUME 91.7 fl (80-96); MEAN PLT VOLUME 8.2 fl (7.5-11.1); RBC 3.17 M/mm3 (4.00-5.60); RDW 15.2 % (11.9-15.9)
[2023-05-20 08:23] LABS: PLATELET COUNT 28 10^3/uL (134-434); WHITE BLOOD COUNT 0.4 K/mm3 (4.0-10.0)
[2023-05-20 08:35] LABS: CHLORIDE 99 mmol/L (98-107); POTASSIUM 4.3 mmol/L (3.5-5.1); SODIUM 142 mmol/L (136-145)
[2023-05-20 08:37] LABS: ANION GAP 14 mmol/L (4-13); BLOOD UREA NITROGEN 96.2 mg/dL (7-18); CO2 30 mmol/L (21-32); GLUCOSE,RANDOM 180 mg/dL (74-106); MAGNESIUM 2.1 mg/dL (1.8-2.4)
[2023-05-20 08:39] LABS: ALBUMIN 1.8 g/dl (3.4-5.0)
[2023-05-20 08:40] LABS: PHOSPHOROUS 4.4 mg/dL (2.5-4.9)
[2023-05-20 08:41] LABS: BILIRUBIN,DIRECT 0.5 mg/dL (0.0-0.2); CREATININE 3.9 mg/dL (0.55-1.3)
[2023-05-20 08:43] LABS: TOT PROT 4.4 g/dl (6.4-8.2)
[2023-05-20 08:44] LABS: BILIRUBIN,TOTAL 1.1 mg/dL (0.2-1)
[2023-05-20] MEDS: CEFEPIME 1 GM in DEXTROSE 5%-WATER 100 ML IVPB SCH ×2 (09:25→21:33)
[2023-05-20] MEDS: PANTOPRAZOLE SODIUM 40 MG VIAL IVPUSH SCH (09:26)
[2023-05-20] MEDS: FLUDROCORTISONE ACETATE 0.1 MG TABLET (FP) PO SCH (09:27)
[2023-05-20] MEDS: VASOPRESSIN 40 UNITS/100 ML BAG IV SCH ×2 (09:57→18:45)
[2023-05-20] MEDS ORDERED: CALCIUM GLUCONATE IN NACL, 1,000 MG/100 ML BAG IVPB ONE (10:00)
[2023-05-20] MEDS: NOREPINEPHRINE BITARTRATE/D5W 8 MG/250 ML BAG IVPB SCH ×2 (13:35→18:45)
[2023-05-20] MEDS ORDERED: VASOPRESSIN 20 UNITS/ML VIAL IV ONE (18:40)
[2023-05-20] MEDS: CHLORHEXIDINE GLUCONATE 4% CLEANSER FOR DECOLONIZATION TP SCH (21:33)
[2023-05-21] MEDS: HYDROCORTISONE SOD SUCCINATE 100 MG/2 ML VIAL IVPB SCH ×4 (02:04→22:10)
[2023-05-21] MEDS: INSULIN SLIDING SCALE (NOVOLOG) 1 VIAL SQ SCH ×3 (06:06→17:41)
[2023-05-21 06:59] LABS: HEMATOCRIT 26.3 % (35.4-49); HEMOGLOBIN 8.8 GM/dL (11.7-16.9); MCH 30.4 pg (25.7-33.7); MCHC 33.3 g/dl (32.0-35.9); MEAN CELL VOLUME 91.3 fl (80-96); MEAN PLT VOLUME 7.6 fl (7.5-11.1); RBC 2.88 M/mm3 (4.00-5.60); RDW 14.9 % (11.9-15.9)
[2023-05-21 07:12] LABS: WHITE BLOOD COUNT 0.2 K/mm3 (4.0-10.0)
[2023-05-21 07:18] LABS: CHLORIDE 98 mmol/L (98-107); POTASSIUM 3.6 mmol/L (3.5-5.1); SODIUM 140 mmol/L (136-145)
[2023-05-21 07:21] LABS: ALBUMIN 1.5 g/dl (3.4-5.0); ANION GAP 10 mmol/L (4-13); CO2 32 mmol/L (21-32); GLUCOSE,RANDOM 159 mg/dL (74-106); MAGNESIUM 2.1 mg/dL (1.8-2.4)
[2023-05-21 07:24] LABS: CREATININE 4.3 mg/dL (0.55-1.3); PHOSPHOROUS 3.5 mg/dL (2.5-4.9); SGOT/AST 49 U/L (15-37); SGPT/ALT 29 U/L (13-61)
[2023-05-21 07:25] LABS: BILIRUBIN,TOTAL 0.8 mg/dL (0.2-1)
[2023-05-21 07:26] LABS: TOT PROT 3.9 g/dl (6.4-8.2)
[2023-05-21 07:27] LABS: ALK PHOS 65 U/L (45-117)
[2023-05-21 07:46] LABS: BLOOD UREA NITROGEN 109.5 mg/dL (7-18); CALCIUM 6.3 mg/dL (8.5-10.1)
[2023-05-21] MEDS ORDERED: CALCIUM GLUCONATE 10% - 1,000 MG/10 ML VIAL IVPB ONE (07:52)
[2023-05-21 08:40] LABS: PLATELET COUNT 3 10^3/uL (134-434)
[2023-05-21 08:45] VITALS: RESP 16
[2023-05-21] MEDS: PANTOPRAZOLE SODIUM 40 MG VIAL IVPUSH SCH (09:04)
[2023-05-21] MEDS: FLUDROCORTISONE ACETATE 0.1 MG TABLET (FP) PO SCH (09:04)
[2023-05-21] MEDS: VASOPRESSIN 40 UNITS/100 ML BAG IV SCH ×2 (09:05→17:37)
[2023-05-21] MEDS: CEFEPIME 1 GM in DEXTROSE 5%-WATER 100 ML IVPB SCH ×2 (09:05→22:10)
[2023-05-21] MEDS ORDERED: INSULIN (NOVOLOG) ASPART 100 UNITS/ML 10ML VIAL ONE (10:30)
[2023-05-21 19:46] LABS: HEMATOCRIT 24.4 % (35.4-49); HEMOGLOBIN 7.9 GM/dL (11.7-16.9); MCH 29.3 pg (25.7-33.7); MCHC 32.3 g/dl (32.0-35.9); MEAN CELL VOLUME 90.5 fl (80-96); MEAN PLT VOLUME 7.4 fl (7.5-11.1); RBC 2.69 M/mm3 (4.00-5.60); RDW 15.7 % (11.9-15.9)
[2023-05-21 19:58] LABS: PLATELET COUNT 9 10^3/uL (134-434); WHITE BLOOD COUNT 0.2 K/mm3 (4.0-10.0)
[2023-05-21] MEDS: CHLORHEXIDINE GLUCONATE 4% CLEANSER FOR DECOLONIZATION TP SCH (22:10)
[2023-05-22] MEDS: INSULIN SLIDING SCALE (NOVOLOG) 1 VIAL SQ SCH ×4 (01:27→19:17)
[2023-05-22] MEDS: HYDROCORTISONE SOD SUCCINATE 100 MG/2 ML VIAL IVPB SCH ×4 (02:34→21:11)
[2023-05-22 07:06] LABS: MCH 30.4 pg (25.7-33.7); MCHC 33.3 g/dl (32.0-35.9); MEAN CELL VOLUME 91.5 fl (80-96); MEAN PLT VOLUME 10.1 fl (7.5-11.1); RBC 2.63 M/mm3 (4.00-5.60); RDW 15.3 % (11.9-15.9)
[2023-05-22 07:56] LABS: PLATELET COUNT 2 10^3/uL (134-434)
[2023-05-22 08:08] LABS: WHITE BLOOD COUNT 0.2 K/mm3 (4.0-10.0)
[2023-05-22] MEDS: NOREPINEPHRINE BITARTRATE/D5W 8 MG/250 ML BAG IVPB SCH ×4 (08:19→19:17)
[2023-05-22 08:30] LABS: CHLORIDE 97 mmol/L (98-107); POTASSIUM 3.6 mmol/L (3.5-5.1); SODIUM 138 mmol/L (136-145)
[2023-05-22 08:44] LABS: ALBUMIN 1.4 g/dl (3.4-5.0); ANION GAP 14 mmol/L (4-13); CO2 27 mmol/L (21-32); GLUCOSE,RANDOM 124 mg/dL (74-106); MAGNESIUM 2.2 mg/dL (1.8-2.4)
[2023-05-22 08:46] LABS: PHOSPHOROUS 4.5 mg/dL (2.5-4.9); SGPT/ALT 25 U/L (13-61)
[2023-05-22 08:47] LABS: CREATININE 4.9 mg/dL (0.55-1.3); SGOT/AST 46 U/L (15-37)
[2023-05-22 08:48] LABS: BILIRUBIN,TOTAL 0.8 mg/dL (0.2-1); TOT PROT 3.9 g/dl (6.4-8.2)
[2023-05-22 08:49] LABS: ALK PHOS 95 U/L (45-117)
[2023-05-22 09:00] LABS: BLOOD UREA NITROGEN 126.3 mg/dL (7-18); CALCIUM 6.7 mg/dL (8.5-10.1)
[2023-05-22] MEDS: PANTOPRAZOLE SODIUM 40 MG VIAL IVPUSH SCH (10:18)
[2023-05-22] MEDS: FLUDROCORTISONE ACETATE 0.1 MG TABLET (FP) PO SCH (10:18)
[2023-05-22] MEDS: VASOPRESSIN 40 UNITS/100 ML BAG IV SCH ×2 (10:19→21:11)
[2023-05-22] MEDS: CEFEPIME 1 GM in DEXTROSE 5%-WATER 100 ML IVPB SCH ×2 (10:20→21:11)
[2023-05-22] MEDS ORDERED: CALCIUM GLUCONATE 10% - 1,000 MG/10 ML VIAL IVPB ONE (11:46)
[2023-05-22 17:25] VITALS: TEMP 97.5
[2023-05-22] MEDS: CHLORHEXIDINE GLUCONATE 4% CLEANSER FOR DECOLONIZATION TP SCH (21:11)
[2023-05-23 04:13] VITALS: BP 39/30; PULSE 75
== END 2023-05-23 00:10 | disposition expired | DRG 720 ==
LOC: JER 16:57 → JERBED 19:11 → JICU 21:02
PROVIDERS: ADMIT Internal Medicine Pulmonary Disease; ATTEND Internal Medicine Pulmonary Disease
PROC: 05HM33Z Insertion of Infusion Device into Right Internal Jugular Vein, Percutaneous Approach (ICD-10-PCS; principal; 2023-05-12)
PROC: 0BH17EZ Insertion of Endotracheal Airway into Trachea, Via Natural or Artificial Opening (ICD-10-PCS; 2023-05-12)
PROC: 5A1955Z Respiratory Ventilation, Greater than 96 Consecutive Hours (ICD-10-PCS; 2023-05-12)
PROC: 5A12012 Performance of Cardiac Output, Single, Manual (ICD-10-PCS; 2023-05-13)
PROC: 30233K1 Transfusion of Nonautologous Frozen Plasma into Peripheral Vein, Percutaneous Approach (ICD-10-PCS; 2023-05-17)
PROC: 30233R1 Transfusion of Nonautologous Platelets into Peripheral Vein, Percutaneous Approach (ICD-10-PCS; 2023-05-17)
DX: A41.89 Other specified sepsis (principal); J96.01 Acute respiratory failure with hypoxia; R62.7 Adult failure to thrive; Z68.22 Body mass index [BMI] 22.0-22.9, adult; N17.9 Acute kidney failure, unspecified; E87.20 Acidosis, unspecified; E86.0 Dehydration; I46.9 Cardiac arrest, cause unspecified; J18.9 Pneumonia, unspecified organism; R65.21 Severe sepsis with septic shock; K59.00 Constipation, unspecified; I95.9 Hypotension, unspecified; E87.6 Hypokalemia; D61.818 Other pancytopenia; E83.51 Hypocalcemia; D69.6 Thrombocytopenia, unspecified; F17.210 Nicotine dependence, cigarettes, uncomplicated; J44.9 Chronic obstructive pulmonary disease, unspecified; Z71.89 Other specified counseling
CPT/HCPCS: 0241U-QW; 36415; 36430; 36600; 70450-TC; 71045-TC-FY; 71250-TC; 76775-TC; 80048; 80053; 80076; 81003; 82010; 82570; 82803; 82962; 83605; 83735; 83880; 84100; 84300; 84443; 84484; 85025; 85027; 85379; 85384; 85610; 85730; 86022; 86850; 86900; 86901; 87040; 87070; 87076; 87086; 87186; 87205; 87899; 90677; 93005; 93010; 93306-TC; 94002; 99291; G0480; J1644; J3490; P9017; P9034; P9037; P9038; P9047